=== PATIENT | female | born 1945 | race Two or more races ===

== ENCOUNTER → 2017-06-30 | Outpatient (CLI) | payer MEDICARE, BC ==
--- NOTE | 2017-06-30 10:28 | KCIC ---
INDICATION: Low back pain on palpation. TECHNIQUE: 3 views of the lumbosacral spine are submitted for review. No comparison is available. FINDINGS: There is dextrocurvature centered at L2. L3 is subluxed to the right in relation to L4 approximately 7 mm. There is no fracture. There is no traumatic malalignment. There is endplate spurring throughout, greatest on the right at L4-L5. There is facet hypertrophy greatest at L4-L5 and L5-S1. There are vascular calcifications. 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 Electronically signed by: Josh Mo MD (06/30/2017 10:25 AM) [facility]
== END | disposition home or self-care (01) ==
LOC: KCIC 09:42
PROVIDERS: ATTEND Nurse Practitioner Family
DX: M47.896 Other spondylosis, lumbar region (principal)
CPT/HCPCS: 72100

== ENCOUNTER → 2018-01-15 | Outpatient (CLI) | payer MEDICARE, OTHER | END | disposition home or self-care (01) | LOC: KCIC MAMMO 14:20 | DX: Z12.31 Encounter for screening mammogram for malignant neoplasm of breast (principal); M76.891 Other specified enthesopathies of right lower limb, excluding foot; Z98.82 Breast implant status | CPT/HCPCS: 73560; 77063; 77067 ==

== ENCOUNTER → 2019-03-01 | Outpatient (CLI) | payer MEDICARE ==
--- NOTE | 2019-03-01 09:48 | KCIC ---
Bone densitometry 03/01/2019 9:00 AM Indication: Postmenopausal screening exam. Comparison Study: None. Discussion: Bone Densitometry was performed with dual photon absorption of the lumbar spine and left proximal femur. Lumbar Spine: Bone average density is 1.188g/cm2 for L1-L4. T-Score is 1.36. Dextrocurvature and degenerative changes of the lumbar spine appear to be present. Left proximal femur: Bone average density is 0.806g/cm2. T-Score is -1.1. IMPRESSION: Osteopenia. Note: Definitions established by the World Health Organization: Normal: T-score is -1.0 or above. Osteopenia: T-score is between -1.0 and -2.5. Osteoporosis: T-score is -2.5 or below. Electronically signed by: Mauricio Maldonado MD (03/01/2019 9:45 AM) [facility]
--- NOTE | 2019-03-01 14:12 | KCIC ---
Bilateral digital screening mammograms with 3-D tomosynthesis: Reason for examination: Routine screening. Comparison is made to previous studies dated 01/15/2018 and 11/22/2014. Bilateral mammograms in CC and oblique projections were obtained with 2-D imaging and 3-D tomosynthesis imaging on a Siemens Inspiration unit and reviewed on the workstation. Interpretation was made with the benefit of CAD. The skin and nipples show no abnormalities. No abnormal axillary lymph nodes are seen. Bilateral breast implants remain present but show changes suggesting intracapsular rupture. There is a probable silicone granuloma present adjacent to the implant on the left. These findings however are stable. The breast parenchyma shows scattered fatty and fibroglandular density. (Breast density: Category B.) There continue to be nodular densities at the 3:00 B and 1:00 C positions of the right breast which are stable. There are no new dominant masses, suspicious calcifications or architectural distortion. Impression: No evidence of malignancy. Recommend routine screening. BI-RAD Category 2: Benign. "Our facility is accredited by the [employer] Mammography Program." This patient's information has been entered into a reminder system for the patient to be notified with the results of her examination and a target date for the next mammogram. Electronically signed by: Melody Olson MD (03/01/2019 2:08 PM) [facility]
== END | disposition home or self-care (01) ==
LOC: KCIC DEXA 08:55
PROVIDERS: ATTEND Family Medicine
DX: Z12.31 Encounter for screening mammogram for malignant neoplasm of breast (principal); Z13.820 Encounter for screening for osteoporosis; M85.88 Other specified disorders of bone density and structure, other site; Z78.0 Asymptomatic menopausal state
CPT/HCPCS: 77063; 77067; 77080

== ENCOUNTER → 2019-03-28 | Outpatient (CLI) | payer MEDICARE ==
[~2019-03-28] MED LIST: REGADENOSON 0.4 MG/5 ML DISP.SYRIN. IV ONE
--- NOTE | 2019-03-28 11:15 | CARD ---
MR#: [id number] Date of Study: 03/28/2019 Ordering Physician: BRYAN PORTER, Referring Physician: BRYAN PORTER Tech: Lakisha Rodriguez RDCS APPROVED REPORT EXAM: Two-dimensional and M-mode echocardiogram with Doppler and color Doppler. Other Information Quality : Technically LimitedHR: 68bpm Rhythm : NSRTechnically limited study due to breast surgery. INDICATION Cardiomyopathy 2D DIMENSIONS RVDd3.5 (2.9-3.5cm)Left Atrium(2D)4.1 (1.6-4.0cm) IVSd1.2 (0.7-1.1cm)Aortic Root(2D)2.9 (2.0-3.7cm) LVDd4.4 (3.9-5.9cm)LVOT Diameter2.1 (1.8-2.4cm) PWd0.8 (0.7-1.1cm)LVDs3.7 (2.5-4.0cm) FS (%) 17.7 %SV33.3 ml LVEF(%)37.0 (>50%) M-Mode DIMENSIONS Left Atrium(MM)4.03 (2.5-4.0cm)Aortic Root3.16 (2.2-3.7cm) Aortic Valve AoV Peak Josh.129.2cm/sAoV VTI26.1cm AO Peak GR.6.7mmHgLVOT Peak Josh.84.1cm/s AO Mean GR.3mmHgAVA (VMAX)2.32cm2 ELGIN (VTI)2.30cm2 Mitral Valve MV E Uecvzocd40.1cm/sMV DECEL RRJJ524qk MV A Ipcphanf50.8cm/sE/A Ratio0.7 MV A Rmkmnvlu387mo Pulmonary Valve PV Peak Vumdyrxy824.9cm/s LEFT VENTRICLE The left ventricle is normal size. Proximal septal thickening is noted. Abnormal septal motion probab ly secondary to left bundle branch block. The ejection fraction is estimated at 50%. Transmitral Dopp ler flow pattern is Grade I-abnormal relaxation pattern. RIGHT VENTRICLE The right ventricle is normal size. There is normal right ventricular wall thickness. The right ventr icular systolic function is normal. ATRIA The left atrium is mildly dilated. The right atrium size is normal. The interatrial septum is intact with no evidence for an atrial septal defect or patent foramen ovale as noted on 2-D or Doppler imagi ng. AORTIC VALVE The aortic valve is normal in structure and function. The aortic valve is trileaflet. Doppler and Col or Flow revealed no significant aortic regurgitation. There is no significant aortic valvular stenosi s. MITRAL VALVE The mitral valve is normal in structure and function. There is no evidence of mitral valve prolapse. There is no mitral valve stenosis. Doppler and Color-flow revealed trace to mild mitral regurgitation . TRICUSPID VALVE The tricuspid valve is normal in structure and function. Doppler and Color Flow revealed no tricuspid valve regurgitation noted. There is no tricuspid valve prolapse or vegetation. There is no tricuspid valve stenosis. PULMONIC VALVE The pulmonic valve is not well visualized. GREAT VESSELS The aortic root is normal in size. The ascending aorta is normal in size. The IVC is normal in size a nd collapses >50% with inspiration. PERICARDIAL EFFUSION There is no evidence of significant pericardial effusion. Critical Notification Critical Value: No <Conclusion> Abnormal septal motion probably secondary to left bundle branch block. The ejection fraction is estimated at 50%. Transmitral Doppler flow pattern is Grade I-abnormal relaxation pattern. Doppler and Color-flow revealed trace to mild mitral regurgitation. There is no evidence of significant pericardial effusion. Signed by : Bryan Porter, Electronically Approved : 03/28/2019 11:14:50
--- NOTE | 2019-03-28 13:38 | RAD ---
MR#: [id number] Date of Study: 03/28/2019 Ordering Physician: BRYAN ORTIZ, Referring Physician: JASON YOUNG Tech: LAUREN Olmos, ARRT (R) (N) APPROVED REPORT Test Type: Pharmacological Stress Nurse/Tech: Rubi Day R.N. Test Indications: non ischemic cardiomyapathy Cardiac History: LBBB, obese, Medications: See Electronic Medical Record Medical History: See Electronic Medical Record Resting ECG: SR w/ LBBB Resting Heart Rate: 63 bpm Resting Blood Pressure: 152/62mmHg Pretest Chest Pain: No chest pain Nurse/Tech Notes S1S2, lungs CTA Consent: The procedure was explained to the patient in lay terms. Informed consent was witnessed. Faisal eout was entered into [employer]. History and Stress Test performed by RT Jesús (R) (N) Pharm. Details Pharmacologic stress testing was performed using 0.4mg per 5ml of regadenoson given intravenously ove r 7-10 seconds. Stress Symptoms SOB, chest "ache' scale 3/10 -went across her bottom chest and mid sternum- this resolved by the end of recovery period. POST EXERCISE Reason for Termination: Infusion complete Max HR: 85 bpm Max Blood Pressure: 134/58mmHg Blood Pressure response to exercise: Normal blood pressure response during stress. Heart Rate response to exercise: wnl Chest Pain: Yes. see above note Arrhythmia: No. ST Change: No. INTERPRETATION Stress EKG Conclusion: Baseline EKG showed sinus rhythm with LBBB. Non diagnostic changes at peak st ress. No arrhythmias. Imaging Protocol IMAGE PROTOCOL: Rest Tc-99m/stress Tc-99m 1 day Rest: Stress: Viability: Radiopharm.Tc99m SupxpauznDs84g Sestamibi Dose10.6mCi 34mCi Img Date 03/28/2019 03/28/2019 Inj-Img Qhaw33hfu. 60min. Rest Admin Site:IV - Right AntecubitalAdministrator:RT Jesús (R)(N) Stress Admin Site: IV - Right AntecubitalAdministrator: Kenroy Mcgraw, RT (R)(N) STRESS DATA End Diast. Vol.102.0mlLVEDV index BSA50.0ml End Syst. Vol.29.0mlLVESV index BSA14.0ml Myocardial Abtb620.0gEject. Bysigbpm89.0% Stress Scores Regional WT0.00Summed WT3.00 Regional WM0.00Summed WM3.00 LV Perfusion Scintigraphic images showed fixed defect involving the anterior wall most probably breast attenuation artifact based on normal wall motion. No other fixed or reversible defects seen. Wall Motion Abnormal septal motion probably from LBBB. The ejection fraction is calculated at 66%. LV Perf. Quant 17 Seg. SSS15.00 17 Seg. SRS16.00 17 Seg. SDS2.00 Stress Defect Extent (% LAD)44.40Rest Defect Extent (% LAD)50.60Rev. Defect Extent (% LAD)0.00 Stress Defect Extent (% LCX) 46.30Rest Defect Extent (% LCX)43.80Rev. Defect Extent (% LCX)0.00 Stress Defect Extent (% RCA)0.00Rest Defect Extent (% RCA)0.00Rev. Defect Extent (% RCA)0.00 Stress Defect Extent (% SETH)30.20Rest Defect Extent (% SETH)34.60Rev. Defect Extent (% SETH)0.00 Conclusion 1. Regadenoson cardioisotope stress test showed breast attenuation artifact without any evidence of i schemia or infarct. 2. Abnormal septal motion probably from LBBB. The ejection fraction is calculated at 66%. 3. Low risk for cardiac events. Signed by : Bryan Ortiz, Electronically Approved : 03/28/2019 13:37:37
== END | disposition home or self-care (01) ==
LOC: ECHO 08:49
PROVIDERS: ATTEND Internal Medicine Cardiovascular Disease
DX: I34.0 Nonrheumatic mitral (valve) insufficiency (principal); I44.7 Left bundle-branch block, unspecified; I42.9 Cardiomyopathy, unspecified; E66.9 Obesity, unspecified
CPT/HCPCS: 78452; 93017; 93306; A9500; J2785

== ENCOUNTER → 2020-04-03 | Outpatient (CLI) | payer MEDICARE ==
--- NOTE | 2020-04-03 11:38 | CARD ---
MR#: [id number] Date of Study: 04/03/2020 Ordering Physician: BRYAN ORTIZ, Referring Physician: BRYAN ORTIZ Tech: Jenny Enrique RDCS APPROVED REPORT EXAM: Two-dimensional and M-mode echocardiogram with Doppler and color Doppler. Other Information Quality : Fair Rhythm : LBBBTechnically limited study due to body habitus. INDICATION Non-Ischemic Cardiomyopathy 2D DIMENSIONS RVDd2.5 (2.9-3.5cm)Left Atrium(2D)3.3 (1.6-4.0cm) IVSd1.1 (0.7-1.1cm)Aortic Root(2D)2.7 (2.0-3.7cm) LVDd5.5 (3.9-5.9cm)LVOT Diameter2.0 (1.8-2.4cm) PWd1.0 (0.7-1.1cm)LVDs3.8 (2.5-4.0cm) FS (%) 29.9 %SV82.7 ml LVEF(%)56.6 (>50%) Aortic Valve AoV Peak Josh.92.1cm/sAoV VTI16.6cm AO Peak GR.3.4mmHgLVOT Peak Josh.80.5cm/s AO Mean GR.2mmHgAVA (VMAX)2.65cm2 ELGIN (VTI)2.80cm2 Pulmonary Vein S1 Sligbcut05.6cm/sD2 Wdjffjyh45.7cm/s LEFT VENTRICLE The left ventricle is normal size. There is normal left ventricular wall thickness. Left ventricle sy stolic function moderately impaired. The Ejection Fraction is 40-45%. Septal motion consistent with c onduction abnormality. The mid to distal inferoseptum, apex, lateral wall are moderate to severely hy pokinetic. Tissue Doppler imaging reveals moderate left ventricular diastolic dysfunction. RIGHT VENTRICLE The right ventricle is normal size. The right ventricular systolic function is normal. ATRIA The left atrium size is normal. The right atrium size is normal. The interatrial septum is intact wit h no evidence for an atrial septal defect or patent foramen ovale as noted on 2-D or Doppler imaging. AORTIC VALVE The aortic valve is not well visualized. Doppler and Color Flow revealed no significant aortic regurg itation. There is no significant aortic valvular stenosis. MITRAL VALVE The mitral valve is calcified but opens well. There is no evidence of mitral valve prolapse. There is no mitral valve stenosis. Doppler and Color-flow revealed mild mitral regurgitation. TRICUSPID VALVE The tricuspid valve is normal in structure and function. Doppler and Color Flow revealed no tricuspid valve regurgitation noted. There is no tricuspid valve stenosis. PULMONIC VALVE The pulmonic valve is not well visualized. Doppler and Color Flow revealed trace pulmonic valvular re gurgitation. There is no pulmonic valvular stenosis. GREAT VESSELS The aortic root is normal in size. The ascending aorta is not well seen. The IVC is normal in size an d collapses >50% with inspiration. PERICARDIAL EFFUSION There is no evidence of significant pericardial effusion. Critical Notification Critical Value: No <Conclusion> Left ventricle systolic function moderately impaired. The Ejection Fraction is 40-45%. Septal motion consistent with conduction abnormality. The mid to distal inferoseptum, apex, lateral w all are moderate to severely hypokinetic. Technically difficult study. Signed by : Robert Munroe, Electronically Approved : 04/03/2020 11:37:29
== END | disposition home or self-care (01) ==
LOC: ECHO 10:04
PROVIDERS: ATTEND Internal Medicine Cardiovascular Disease
DX: I34.0 Nonrheumatic mitral (valve) insufficiency (principal); I42.9 Cardiomyopathy, unspecified
CPT/HCPCS: 93306

== ENCOUNTER → 2020-10-09 | Outpatient (CLI) | payer MEDICARE ==
[~2020-10-09] VITALS: Ht 167.6 cm; Wt 90.7 kg
[~2020-10-09] MED LIST changes: +MV-M1CAP15 PO
--- NOTE | 2020-10-09 12:08 | RAD ---
MR#: [id number] Date of Study: 10/09/2020 Ordering Physician: BRYAN ORTIZ, Referring Physician: JASON YOUNG Tech: ALUREN Olmos, ARRT (R) (N) APPROVED REPORT Test Type: Pharmacological Stress Nurse/Tech: TOM ERICKSON Test Indications: NICM Cardiac History: SEE EMR Medications: SEE EMR Medical History: SEE EMR Resting ECG: SR W/ BBB Resting Heart Rate: 66 bpm Resting Blood Pressure: 138/63mmHg Pretest Chest Pain: No chest pain Nurse/Tech Notes S1,S2, LUNGS CTA, DENIED SOA OR CP. VSS. Consent: The procedure was explained to the patient in lay terms. Informed consent was witnessed. Faisal eout was entered into [employer]. History and Stress Test performed by RT Mary (R) (N) Pharm. Details Pharmacologic stress testing was performed using 0.4mg per 5ml of regadenoson given intravenously ove r 7-10 seconds. Stress Symptoms PT C/O OF A " HEAVINESS AND SOA" DURING THE FIRST COUPLE MINUTES OF THE TEST, RESOLVED QUICKLY. VSS. POST EXERCISE Reason for Termination: Infusion complete Max HR: 105 bpm Max Blood Pressure: 147/69mmHg Blood Pressure response to exercise: Normal blood pressure response during stress. Heart Rate response to exercise: NORMAL HEART RATE RESPONSE DURING STRESS Chest Pain: No. Arrhythmia: . LEFT BUNDLE BRANCH BLOCK NOTED AND UNCHANGED FROM BASELINE ST Change: No. INTERPRETATION Stress EKG Conclusion: Non-diagnostic EKG due to LBBB. Imaging Protocol IMAGE PROTOCOL: Rest Tc-99m/stress Tc-99m 1 day Rest: Stress: Viability: Radiopharm.Tc99m SupckdvxvYj91e Sestamibi Ljyi26yWy 32.5mCi Img Date 10/09/2020 10/09/2020 Inj-Img Ohum79kzf. 60min. Rest Admin Site:IV - Right AntecubitalAdministrator:RT Mary (R)(N) Stress Admin Site: IV - Right AntecubitalAdministrator: RT Mary (R)(N) STRESS DATA End Diast. Vol.109.0mlLVEDV index BSA54.0ml End Syst. Vol.30.0mlLVESV index BSA15.0ml Myocardial Gzli522.0gEject. Hjgtcfwc52.0% Stress Scores Regional WT0.00Summed WT4.00 Regional WM0.00Summed WM1.00 LV Perfusion There is a fixed mid to distal anterior and anteroseptal defect consistent with prior infarct without ischemia versus LBBB artifact. Wall Motion Grossly normal wall motion. EF 55%. LV Perf. Quant 17 Seg. SSS7.00 17 Seg. SRS10.00 17 Seg. SDS0.00 Stress Defect Extent (% LAD)28.80Rest Defect Extent (% LAD)31.30Rev. Defect Extent (% LAD)9.40 Stress Defect Extent (% LCX) 11.30Rest Defect Extent (% LCX)15.00Rev. Defect Extent (% LCX)6.30 Stress Defect Extent (% RCA)0.00Rest Defect Extent (% RCA)0.00Rev. Defect Extent (% RCA)0.00 Stress Defect Extent (% SETH)15.20Rest Defect Extent (% SETH)16.70Rev. Defect Extent (% SETH)5.90 Other Information Quality:Average Risk Assessment: Low Risk Conclusion 1. Non-diagnostic EKG due to LBBB 2. Fixed anteroseptal and anterior perfusion defect consistent with prior infarct w/o active ischemia versus artifact due to LBBB 3. Normal EF at > 55% 4. Moderate risk study. Signed by : Robert Munroe, Electronically Approved : 10/09/2020 12:07:41
== END ==
LOC: NM 08:17
PROVIDERS: ATTEND Internal Medicine Cardiovascular Disease
DX: I42.9 Cardiomyopathy, unspecified (principal)
CPT/HCPCS: 78452; 93017; A9500; J2785

== ENCOUNTER → 2020-12-05 | Outpatient (CLI) | payer MEDICARE ==
[~2020-12-05] MED LIST changes: -REGADENOSON 0.4 MG/5 ML DISP.SYRIN. IV ONE
--- NOTE | 2020-12-05 17:21 | KCIC ---
Bilateral digital screening mammograms and tomosynthesis Reason for examination: Routine screening. Comparison is made to previous study dated March 01, 2019 and priors Standard and implant displaced CC and MLO digital views obtained. Interpretation was made with the be nefit of CAD. The skin and nipples show no abnormalities. No abnormal lymph nodes are seen. The breast parenchyma i s scattered fibroglandular elements. (Breast density: Category B.) There are no suspicious masses, sheehan spicious calcifications or architectural distortions. Bilateral subpectoral implants. There is a mild density along the anterior surface of the left implant stable to prior studies on the MLO view could be extruded silicone granuloma, benign. Benign calcifications. Nodular glandular asymmetry right inn er lower breast stable, benign. Impression: Negative mammogram. Recommend routine screening. BI-RADS Category 2: Benign. "Our facility is accredited by the [employer] Mammography Program." This patient's information has been entered into a reminder system for the patient to be notified wit h the results of her examination and a target date for the next mammogram. Electronically signed by: Reji Toussaint MD (12/05/2020 5:18 PM) [email or web address]
== END ==
LOC: KCIC MAMMO 09:14
PROVIDERS: ATTEND Family Medicine
DX: Z12.31 Encounter for screening mammogram for malignant neoplasm of breast (principal)
CPT/HCPCS: 77063; 77067

== ENCOUNTER → 2021-04-09 | Outpatient (CLI) | payer MEDICARE ==
--- NOTE | 2021-04-09 12:14 | CARD ---
MR#: [id number] Date of Study: 04/09/2021 Ordering Physician: BRYAN ORTIZ, Referring Physician: BRYAN ORTIZ, Tech: Imani Poe [facility] APPROVED REPORT EXAM: Two-dimensional and M-mode echocardiogram with Doppler and color Doppler. Other Information Quality : FairHR: 73bpm Technically limited study due to body habitus. INDICATION Cardiomyopathy RISK FACTORS Hyperlipidemia 2D DIMENSIONS RVDd3.1 (2.9-3.5cm)Left Atrium(2D)3.6 (1.6-4.0cm) IVSd1.0 (0.7-1.1cm)Aortic Root(2D)2.9 (2.0-3.7cm) LVDd5.1 (3.9-5.9cm)LVOT Diameter2.1 (1.8-2.4cm) PWd1.0 (0.7-1.1cm)LVDs2.9 (2.5-4.0cm) FS (%) 43.4 %SV90.2 ml LVEF(%)64.3 (>50%) Aortic Valve AoV Peak Josh.120.5cm/sAoV VTI26.0cm AO Peak GR.5.8mmHgLVOT Peak Josh.86.5cm/s LVOT VTI 17.85cmAO Mean GR.4mmHg ELGIN (VMAX)1.73ho8OOE (VTI)2.44cm2 Mitral Valve MV E Ntkhlcqq63.0cm/sMV DECEL IWCH275sk MV A Liwwrtjb32.0cm/sMV JIZ85nj E/A Ratio0.6MVA (PHT)3.16cm2 TDI E/Lateral E'7.8E/Medial E'8.2 Pulmonary Valve PV Peak Tfoatibq34.6cm/sPV Peak Grad.4mmHg Tricuspid Valve TR P. Xxiyhuae456jn/sRAP FGYZZEWZ3fqEx TR Peak Gr.87nqBvCKOE73xyRc Pulmonary Vein S1 Zevupyxa18.2cm/sD2 Ruazkwfx57.2cm/s PVa evpizvxm397qlda LEFT VENTRICLE The left ventricle is normal size. There is normal left ventricular wall thickness. The systolic func tion is low normal. EF 50% Septal motion consistent with conduction abnormality. Otherwise, grossly n ormal wall motion. Technically limited images. Transmitral Doppler flow pattern is Grade I-abnormal r elaxation pattern. RIGHT VENTRICLE The right ventricle is mildly dilated. There is normal right ventricular wall thickness. The right ve ntricular systolic function is normal. ATRIA The left atrium size is normal. The right atrium size is normal. The interatrial septum is intact wit h no evidence for an atrial septal defect or patent foramen ovale as noted on 2-D or Doppler imaging. AORTIC VALVE The aortic valve is normal in structure and function. Doppler and Color Flow revealed no significant aortic regurgitation. There is no significant aortic valvular stenosis. Calculated aortic valve area is 2.52 cm2 with maximum pressure gradient of 7 mmHg and mean pressure gradient of 4 mmHg. MITRAL VALVE The mitral valve is normal in structure and function. There is no evidence of mitral valve prolapse. There is no mitral valve stenosis. Doppler and Color-flow revealed trace mitral regurgitation. TRICUSPID VALVE The tricuspid valve is not well visualized. Doppler and Color Flow revealed trace tricuspid regurgita tion with an estimated PAP of 28 mmHg. There is no tricuspid valve stenosis. PULMONIC VALVE The pulmonic valve is not well visualized. Doppler and Color Flow revealed trace pulmonic valvular re gurgitation. There is no pulmonic valvular stenosis. GREAT VESSELS The aortic root is normal in size. The ascending aorta is normal in size. The IVC is normal in size a nd collapses >50% with inspiration. PERICARDIAL EFFUSION There is no evidence of significant pericardial effusion. Critical Notification Critical Value: No <Conclusion> The systolic function is low normal. EF 50% Septal motion consistent with conduction abnormality. Otherwise, grossly normal wall motion. [employer] limited images. Signed by : Robert Munroe, Electronically Approved : 04/09/2021 12:13:55
== END ==
LOC: ECHO 08:53
PROVIDERS: ATTEND Internal Medicine Cardiovascular Disease
DX: I42.9 Cardiomyopathy, unspecified (principal)
CPT/HCPCS: 93306

== ENCOUNTER → 2021-06-14 | Outpatient (CLI) | payer MEDICARE ==
--- NOTE | 2021-06-14 17:41 | KCIC ---
EXAMINATION: XR EXAM OF ANKLE_LEFT 3V CLINICAL HISTORY: Acute left lateral ankle pain in recent months. Painful to bear weight. TECHNIQUE: XR EXAM OF ANKLE_LEFT 3V Number of Images/Views: 3 COMPARISON: None FINDINGS: Joint spaces and alignment maintained. No acute fracture. Small plantar calcaneal enthesophyte. Mild subcutaneous edema. IMPRESSION: No acute osseous abnormality. Electronically signed by: Rush Miller DO (06/14/2021 5:38 PM) [id number]
== END ==
LOC: KCIC 14:21
PROVIDERS: ATTEND Family Medicine
DX: M77.32 Calcaneal spur, left foot (principal); R60.9 Edema, unspecified
CPT/HCPCS: 73610